=== PATIENT | male | born 1970 | race Caucasian/White ===

== ENCOUNTER → 2017-01-07 | Outpatient (CLI) | payer OTHER ==
[~2017-01-07] MED LIST: ASPIR 8181 MG PO; COLACE 100MG C100 MG PO; DAILY VALUE1 EACH PO; FOLIC ACID 1 MG1 MG PO; KEPPRA500 MG PO; LEVAQUIN750 MG PO; LIBRIUM CAP 1010 MG PO; LIBRIUM CAP 2525 MG PO; LISINOPRIL2.5 MG PO; LOPRESSOR 25 MG25 MG PO; METOPROLOL SUCC25 MG PO; METOPROLOL TART25 MG PO; MIRALAX17 GM PO; MULTIVITAMINS1 EAC1 PO; PROTONIX40 MG PO; THIAMINE HCL100 MG PO
== END ==
LOC: LAB 15:16
DX: Z02.83 Encounter for blood-alcohol and blood-drug test (principal)
CPT/HCPCS: 36415

== ENCOUNTER 2020-12-04 13:37 | Inpatient (IN) | payer MEDICARE, OTHER ==
[~2020-12-04] VITALS: Ht 177.8 cm; Wt 72.4 kg
[~2020-12-04 13:37] MED LIST changes: +BACTRIM DS TAB1 EACH PO; +HYDROCODON-ACE1 EAC2 PO; +KEFLEX CAP 500500 MG PO; +PROAIR DIGIHAL90 MCG INH; +TYLENOL PM EX-1 EACH PO; +VITAMIN D2000 UNI1 PO; +ZITHROMAX TRI-500 MG PO
[2020-12-04 15:02] LABS: HEMOGLOBIN 12.9 gm/dl (14.0-17.5); RED BLOOD COUNT 4.01 M/UL (4.20-5.50); WHITE BLOOD COUNT 12.1 K/UL (4.5-11.0)
[2020-12-04 15:53] LABS: BUN/CREATININE RATIO 16 (0-10)
[2020-12-04 21:13] LABS: BUN/CREATININE RATIO 13 (0-10)
[2020-12-05 01:25] LABS: BUN/CREATININE RATIO 18 (0-10)
[2020-12-05 04:25] LABS: BUN/CREATININE RATIO 19 (0-10)
[2020-12-05 08:45] LABS: HEMOGLOBIN 10.7 gm/dl (14.0-17.5); RED BLOOD COUNT 3.37 M/UL (4.20-5.50); WHITE BLOOD COUNT 8.3 K/UL (4.5-11.0)
[2020-12-05 09:02] LABS: BUN/CREATININE RATIO 13 (0-10)
[2020-12-05 15:04] LABS: BUN/CREATININE RATIO 16 (0-10)
[2020-12-06 05:14] LABS: HEMOGLOBIN 9.7 gm/dl (14.0-17.5); WHITE BLOOD COUNT 8.5 K/UL (4.5-11.0)
[2020-12-06 05:20] LABS: RED BLOOD COUNT 3.01 M/UL (4.20-5.50)
[2020-12-06 05:28] LABS: BUN/CREATININE RATIO 15 (0-10)
[2020-12-07 04:12] LABS: HEMOGLOBIN 9.9 gm/dl (14.0-17.5); RED BLOOD COUNT 3.08 M/UL (4.20-5.50); WHITE BLOOD COUNT 7.4 K/UL (4.5-11.0)
[2020-12-07 04:37] LABS: BUN/CREATININE RATIO 16 (0-10)
[2020-12-08 06:02] LABS: HEMOGLOBIN 9.5 gm/dl (14.0-17.5); RED BLOOD COUNT 2.98 M/UL (4.20-5.50)
[2020-12-08 06:32] LABS: BUN/CREATININE RATIO 13 (0-10)
--- NOTE | 2020-12-08 12:22 | NUR ---
WHILE PASSING MEDICATION PATIENT NOTED TO BEGIN HAVING A SEIZURE. PROVIDER AT BEDSIDE. PATIENT NOTED TO BE HAVING JERKING MOVEMENTS. PATIEN GIVEN ATIVAN 2MG IVP PER PROVIDER VERBAL ORDER. PATIENT ALSO PLACED ON 4LNC PER PROVIDER VERBAL ORDER.
[2020-12-09 06:28] LABS: RED BLOOD COUNT 3.08 M/UL (4.20-5.50); WHITE BLOOD COUNT 5.8 K/UL (4.5-11.0)
[2020-12-09 06:49] LABS: BUN/CREATININE RATIO 12 (0-10)
[2020-12-10 06:30] LABS: HEMOGLOBIN 9.7 gm/dl (14.0-17.5); RED BLOOD COUNT 3.02 M/UL (4.20-5.50); WHITE BLOOD COUNT 6.1 K/UL (4.5-11.0)
[2020-12-10 07:03] LABS: BUN/CREATININE RATIO 8 (0-10)
[2020-12-10] MEDS ORDERED: KEPPRA500 MG PO (11:16)
[2020-12-10] MEDS ORDERED: NICOTINE PATCH1 EAC2 TOP (11:16)
[2020-12-10] MEDS ORDERED: ASPIRIN EC81 MG PO (11:16)
--- NOTE | 2020-12-10 13:13 | NUR ---
REPORT CALLED TO YOMI MERINO AT [facility]
== END 2020-12-10 13:11 | disposition home or self-care (01) | DRG 897 ==
LOC: ER1 13:37 → MED SURG 4 16:49 → CDU 16:49 → MED SURG 4 16:49
PROVIDERS: Family Medicine; Physician Assistant; Physician Assistant Medical; ADMIT Internal Medicine
DX: F10.139 Alcohol abuse with withdrawal, unspecified (principal); E87.1 Hypo-osmolality and hyponatremia; N30.00 Acute cystitis without hematuria; Z20.822 Contact with and (suspected) exposure to COVID-19; D64.9 Anemia, unspecified; E87.6 Hypokalemia; R07.81 Pleurodynia; E86.1 Hypovolemia; E83.42 Hypomagnesemia; F17.210 Nicotine dependence, cigarettes, uncomplicated; J44.9 Chronic obstructive pulmonary disease, unspecified; B96.20 Unspecified Escherichia coli [E. coli] as the cause of diseases classified elsewhere; I10 Essential (primary) hypertension; Z82.49 Family history of ischemic heart disease and other diseases of the circulatory system; Z82.0 Family history of epilepsy and other diseases of the nervous system; Z83.3 Family history of diabetes mellitus
CPT/HCPCS: 36415; 36600; 70450; 71045; 80048; 80053; 80202; 80307; 81001; 82140; 82272; 82550; 82553; 82803; 83605; 83735; 83874; 83935; 84100; 84295; 84300; 84484; 85025; 85027; 85610; 87040; 87077; 87086; 87186; 93005; 95819; 96374; 97161; 99285; G0480; J0696; J0780; J1650; J1953; J2060; J2405; J3370; J7030; J7070; U0002

== ENCOUNTER 2021-05-27 12:08 | Inpatient (IN) | payer MEDICARE ==
[~2021-05-27] VITALS: Ht 177.8 cm; Wt 77.1 kg
[~2021-05-27 12:08] MED LIST changes: +ASPIRIN EC81 MG PO; +NICOTINE PATCH1 EAC2 TOP
[2021-05-27 12:44] LABS: HEMOGLOBIN 13.5 gm/dl (14.0-17.5); RED BLOOD COUNT 4.2 M/UL (4.20-5.50); WHITE BLOOD COUNT 7.8 K/UL (4.5-11.0)
[2021-05-27 13:28] LABS: BUN/CREATININE RATIO 7 (0-10)
[2021-05-27] MEDS ORDERED: B-1100 MG PO (14:21)
[2021-05-27] MEDS ORDERED: MEN'S 50 PLUS1 EACH PO (14:21)
[2021-05-27] MEDS ORDERED: OMNICEF 300 MG300 MG PO (14:21)
[2021-05-28 04:25] LABS: HEMOGLOBIN 12.7 gm/dl (14.0-17.5); RED BLOOD COUNT 4.03 M/UL (4.20-5.50)
[2021-05-28 04:50] LABS: BUN/CREATININE RATIO 8 (0-10)
[2021-05-29 07:11] LABS: HEMOGLOBIN 12.6 gm/dl (14.0-17.5); RED BLOOD COUNT 3.98 M/UL (4.20-5.50); WHITE BLOOD COUNT 6.5 K/UL (4.5-11.0)
[2021-05-29 07:52] LABS: BUN/CREATININE RATIO 9 (0-10)
--- NOTE | 2021-05-30 03:18 | NUR ---
pt is on a CIWA protocol and has scored 4 for 2 assessments. at 0100 pt called out with complaint of increased anxiety with nausea, and tremors. CIWA score was 8. Dr. Stanton notified of score and 1mg ativan was given at 0121. Recheck was done 30 after prn medication with a score of 2.
[2021-05-30 06:47] LABS: BUN/CREATININE RATIO 9 (0-10)
[2021-05-30 11:10] LABS: HBSAG SCREEN Negative (Negative); HEP A AB, IGM Negative (Negative); HEP B CORE AB, IGM Negative (Negative); HEP C VIRUS AB 0.2 (0.0-0.9)
[2021-05-31 05:36] LABS: HEMOGLOBIN 11.5 gm/dl (14.0-17.5); RED BLOOD COUNT 3.68 M/UL (4.20-5.50); WHITE BLOOD COUNT 6.6 K/UL (4.5-11.0)
[2021-05-31 06:17] LABS: BUN/CREATININE RATIO 8 (0-10)
[2021-05-31] MEDS ORDERED: DOXYCYCLINE HY100 MG PO (13:27)
[2021-05-31] MEDS ORDERED: COLCHICINE 0.60.6 MG PO (13:27)
[2021-05-31] MEDS ORDERED: VITAMIN D21250 MCG PO (13:27)
[2021-05-31] MEDS ORDERED: IPRAT-ALBUT 0.5-3 ML NEB (13:27)
[2021-05-31] MEDS ORDERED: ELIQUIS 5 MG TAB5 MG PO (13:27)
[2021-05-31] MEDS ORDERED: VITAMIN B-121000 MC3 PO (13:27)
[2021-05-31] MEDS ORDERED: NEBULIZER UNIT (13:55)
[2021-06-01 06:32] LABS: HEMOGLOBIN 11.8 gm/dl (14.0-17.5); RED BLOOD COUNT 3.78 M/UL (4.20-5.50); WHITE BLOOD COUNT 5.2 K/UL (4.5-11.0)
[2021-06-01 06:54] LABS: BUN/CREATININE RATIO 10 (0-10)
[2021-06-01 16:14] LABS: ENDOMYSIAL ANTIBODY IGA Negative (Negative); IMMUNOGLOBULIN A, QN, SERUM 592 mg/dL (90-386); T-TRANSGLUTAMINASE (TTG) IGA <2 U/mL (0-3)
[2021-06-02 04:25] LABS: BUN/CREATININE RATIO 23 (0-10)
[2021-06-03 08:20] LABS: BUN/CREATININE RATIO 18 (0-10)
[2021-06-05 06:47] LABS: HEMOGLOBIN 12.6 gm/dl (14.0-17.5); RED BLOOD COUNT 3.92 M/UL (4.20-5.50)
[2021-06-05 07:06] LABS: BUN/CREATININE RATIO 10 (0-10)
--- NOTE | 2021-06-07 23:57 | NUR ---
SEIZURE PRECAUTIONS ARE IN PLACE, PADDING ON BEDRAILS AND SUCTION IS AVAILABLE
[2021-06-09 04:14] LABS: HEMOGLOBIN 12.1 gm/dl (14.0-17.5); RED BLOOD COUNT 3.93 M/UL (4.20-5.50); WHITE BLOOD COUNT 7.7 K/UL (4.5-11.0)
[2021-06-09 04:36] LABS: BUN/CREATININE RATIO 20 (0-10)
[2021-06-09] MEDS ORDERED: ELIQUIS5 MG PO (13:54)
== END 2021-06-09 17:55 | disposition home or self-care (01) | DRG 463 ==
LOC: ER1 12:08 → CDU 16:47 → M/S 16:47
PROVIDERS: Internal Medicine; Physician Assistant; Surgery; ADMIT Internal Medicine
PROC: 0J990ZZ Drainage of Buttock Subcutaneous Tissue and Fascia, Open Approach (ICD-10-PCS; 2021-06-01)
PROC: 0JB90ZZ Excision of Buttock Subcutaneous Tissue and Fascia, Open Approach (ICD-10-PCS; principal; 2021-06-01 12:00)
DX: M48.56XA Collapsed vertebra, not elsewhere classified, lumbar region, initial encounter for fracture (principal); E43 Unspecified severe protein-calorie malnutrition; I82.401 Acute embolism and thrombosis of unspecified deep veins of right lower extremity; L02.31 Cutaneous abscess of buttock; E87.1 Hypo-osmolality and hyponatremia; Z20.822 Contact with and (suspected) exposure to COVID-19; G40.909 Epilepsy, unspecified, not intractable, without status epilepticus; Z96.611 Presence of right artificial shoulder joint; J44.9 Chronic obstructive pulmonary disease, unspecified; F17.210 Nicotine dependence, cigarettes, uncomplicated; R82.71 Bacteriuria; I10 Essential (primary) hypertension; G62.1 Alcoholic polyneuropathy; M54.16 Radiculopathy, lumbar region; K80.80 Other cholelithiasis without obstruction; K76.0 Fatty (change of) liver, not elsewhere classified; M48.54XA Collapsed vertebra, not elsewhere classified, thoracic region, initial encounter for fracture; E55.9 Vitamin D deficiency, unspecified; K74.60 Unspecified cirrhosis of liver; S93.401A Sprain of unspecified ligament of right ankle, initial encounter; Z91.14 Patient's other noncompliance with medication regimen; Z82.49 Family history of ischemic heart disease and other diseases of the circulatory system; Z83.3 Family history of diabetes mellitus
CPT/HCPCS: 36415; 70450; 71045; 72128; 72131; 73610; 73700; 76705; 80048; 80053; 80074; 80202; 81001; 82550; 82553; 82652; 82784; 83036; 83540; 83550; 83735; 83874; 84100; 84439; 84443; 84484; 85025; 85610; 85652; 86140; 87070; 87205; 93971; 94640; 94664; 94760; 96372; 96374; 96375; 96376; 97116-GP-CQ; 97161; 97530; 97530-GP-CQ; 99285; G0378; G0480; J0295; J0690; J0692; J0696; J1100; J1650; J1885; J2001; J2060; J2250; J2370; J2405; J2704; J3010; J3370; J3411; J3475; J7030; J7070; J7120; U0002

== ENCOUNTER 2021-08-06 11:56 | Inpatient (IN) | payer MEDICARE, OTHER ==
[~2021-08-06] VITALS: Ht 180.3 cm; Wt 56.7 kg
[~2021-08-06 11:56] MED LIST changes: +B-1100 MG PO; +COLCHICINE 0.60.6 MG PO; +DOXYCYCLINE HY100 MG PO; +ELIQUIS 5 MG TAB5 MG PO; +ELIQUIS5 MG PO; +IPRAT-ALBUT 0.5-3 ML NEB; +MEN'S 50 PLUS1 EACH PO; +NEBULIZER UNIT; +OMNICEF 300 MG300 MG PO; +VITAMIN B-121000 MC3 PO; +VITAMIN D21250 MCG PO
[2021-08-06 13:16] LABS: HEMOGLOBIN 16.6 gm/dl (14.0-17.5); RED BLOOD COUNT 5.64 M/UL (4.20-5.50); WHITE BLOOD COUNT 22.4 K/UL (4.5-11.0)
[2021-08-06 14:26] LABS: BUN/CREATININE RATIO 16 (0-10)
[2021-08-07 03:12] LABS: HEMOGLOBIN 12.5 gm/dl (14.0-17.5); RED BLOOD COUNT 4.34 M/UL (4.20-5.50); WHITE BLOOD COUNT 15.9 K/UL (4.5-11.0)
[2021-08-07 03:20] LABS: BUN/CREATININE RATIO 13 (0-10)
[2021-08-07 16:14] LABS: BUN/CREATININE RATIO 9 (0-10)
[2021-08-08 06:54] LABS: BUN/CREATININE RATIO 8 (0-10)
[2021-08-08 18:55] LABS: BUN/CREATININE RATIO 7 (0-10)
[2021-08-09 05:51] LABS: HEMOGLOBIN 13.7 gm/dl (14.0-17.5)
[2021-08-09 05:52] LABS: RED BLOOD COUNT 4.85 M/UL (4.20-5.50); WHITE BLOOD COUNT 10.6 K/UL (4.5-11.0)
[2021-08-09 06:22] LABS: BUN/CREATININE RATIO 6 (0-10)
--- NOTE | 2021-08-09 18:03 | NUR ---
DR THOMAS MADE AWARE PT HAS NO IV ACCESS AND HAS MISSED MULTIPLE ANTIBIOTICS WELL HIS CT SCANS WERE NOT ABLE TO BE COMPLETED DUETO NO IV ACCESS. AWAITING FURTHER ORDERS.
--- NOTE | 2021-08-10 01:08 | NUR ---
PT HAS NO IV ACCESS AT THIS TIME, WAS TOLD IN REPORT MD IS AWARE AND AWAITING ORDERS. PT STATES THAT HE MAY BE POSSIBLY GETTING A PICC LINE PLACED.
[2021-08-10 07:56] LABS: BUN/CREATININE RATIO 4 (0-10)
--- NOTE | 2021-08-10 10:32 | NUR ---
dr barrios called and aware of potassium being 2.6, new orders for protocol intiaited. she has also been reminded of no iv access for the pt
[2021-08-12 08:15] LABS: BUN/CREATININE RATIO 11 (0-10)
[2021-08-13 05:38] LABS: BUN/CREATININE RATIO 15 (0-10)
--- NOTE | 2021-08-13 10:29 | NUR ---
RN NOTED PATIENT TO BE UTILIZING ABDOMINAL MUSCLES TO BREATHE. PATIENT HEART RATE 128 AND BLOOD PRESSURE 140/96. RN LISTENED TO PATIENT'S LUNGS UTILIZING STETHOSCOPE DUE TO AUDIBLE WHEEZING. PATIENT BED LINEN CHANGED AND PATIENT SAT UPRIGHT IN HIGH LINTON'S POSITION. RN ENCOURAGED PATIENT TO COUGH AND DEEP BREATHE. RN INCREASED OXYGEN TO 7 LITERS NASAL CANNULA. PATIENT OXYGEN NOTED TO BE 90% UP FROM 88% ON 5 LITERS NASAL CANNULA. RN ATTEMPTED TO NOTIFY DR. GILLILAND ABOUT PATIENT'S CHANGE IN CONDITION WITH NO ANSWER. RN LEFT VOICEMAIL TO CALL HER BACK SOON POSSIBLE. RN CALLED DR. CUMMINGS AND NOTIFIED HIM OF PATIENT'S CHANGE IN CONDITION. NO NEW ORDERS NOTED. RN DID NOT ADMINISTER MORNING MEDICATIONS DUE TO FEAR OF ASPIRATION. CONTINUOUS TELEMETRY AND PUSE OXIMETRY IN PLACE. BED LOCKED AND LOW. CALL LIGHT WITHIN REACH.
[2021-08-13 11:16] LABS: HEMOGLOBIN 13.7 gm/dl (14.0-17.5); RED BLOOD COUNT 4.74 M/UL (4.20-5.50); WHITE BLOOD COUNT 15.6 K/UL (4.5-11.0)
--- NOTE | 2021-08-13 11:58 | NUR ---
RN ADMINISTERED PATIENT'S IV LASIX AND SAT PATIENT UP IN A HIGH LINTON'S POSITION TO ADMINISTER PO METOPROLOL. PATIENT SWALLOWED PILL BUT ONCE HE DRANK THE WATER RN OFFERED HIM, HE BECAME SILENT AND COULD NOT COUGH. RN HELD ONTO HIS LOWER BACK AND BENT HIM FORWARD AND URGED HIM TO COUGH. PATIENT FINALLY BEGAN TO COUGH AND SPEAK AGAIN. RN CALLED DR. GILLILAND AND NOTIFIED HER OF PATIENT'S EPISODE. RN RECEIVED A CALL FROM TELEMETRY STATING THE PATIENT'S OXYGEN WAS IN THE 70'S AND FALLING INTO THE 60'S. RN RANG THE STAFF ASSIST BUTTON AND INCREASED PATIENT'S OXYGEN TO 7 LITERS. STAFF CALLED AN PACU NURSE AND DR. GILLILAND ENTERED AND ORDERED PATIENT TO BE BAG MASKED. PATIENT OXYGEN INCREASED TO 80'S. MD ORDERED RN TO HAVE PULMONOLOGY ASSESS PATIENT TO DETERMINE IF PATIENT NEEDED TO BE ON PCU OR MED SURG. RN ATTEMPTED TO CALL DR. CUMMINGS BUT HE WAS IN THE ICU WITH ANOTHER PATIENT. RN ASKED ICU NURSE TO HAVE HIM COME TO ROOM 4129 SOON POSSIBLE. MD CALLED RN AND ASKED WHAT WAS GOING ON WITH THE PATIENT, RN UPDATED HIM, MD CAME TO ASSESS PATIENT. MD ORDERED RESPIRATORY THERAPIST TO PLACE PATIENT ON A BIPAP AND EVENTUALLY PATIENT OXYGEN INCREASED TO 94%. MD AND STAFF DECIDED PATIENT WOULD BE BETTER SUITED FOR THE ICU AT THIS TIME. MD ORDERED RN TO PLACE A LAWRENCE CATHETER FOR SKIN INTEGRITY PROMOTION, CATHETER PLACED. VERBAL REPORT GIVEN TO ICU NURSE THAT CAME TO PACU NURSE, PATIENT TAKEN TO ICU BY RN AND RESOURCE NURSE.
[2021-08-14 12:40] LABS: HEMOGLOBIN 13.7 gm/dl (14.0-17.5); RED BLOOD COUNT 4.76 M/UL (4.20-5.50); WHITE BLOOD COUNT 15.5 K/UL (4.5-11.0)
[2021-08-14 13:22] LABS: BUN/CREATININE RATIO 26 (0-10)
--- NOTE | 2021-08-14 19:45 | NUR ---
DR. ROBBINS DLIW AT BEDSIDE. DECISION WAS MADE BY MD TO INTUBATE PATIENT. ATTEMPTED TO NOTIFY LEAD RAMP SERVICE MAN LISTED WITH NO SUCCESS. INTUBATION WAS SUCCESSFUL WITHOUT COMPLICATION.
[2021-08-15 04:59] LABS: HEMOGLOBIN 13.2 gm/dl (14.0-17.5); RED BLOOD COUNT 4.59 M/UL (4.20-5.50)
[2021-08-15 05:03] LABS: WHITE BLOOD COUNT 28.8 K/UL (4.5-11.0)
[2021-08-15 05:37] LABS: BUN/CREATININE RATIO 22 (0-10)
[2021-08-16 06:50] LABS: BUN/CREATININE RATIO 22 (0-10)
[2021-08-16 16:36] LABS: HEMOGLOBIN 13.2 gm/dl (14.0-17.5); RED BLOOD COUNT 4.64 M/UL (4.20-5.50)
[2021-08-17 05:20] LABS: HEMOGLOBIN 13.4 gm/dl (14.0-17.5); RED BLOOD COUNT 4.71 M/UL (4.20-5.50); WHITE BLOOD COUNT 18.7 K/UL (4.5-11.0)
[2021-08-17 06:21] LABS: BUN/CREATININE RATIO 22 (0-10)
--- NOTE | 2021-08-17 08:00 | NUR ---
Bronchoscopy performed at bedside by , started at 07:40am on 08/17. ICU nurse assisted, endoscopy nurse not available. 10ml Lidocaine used during procedure and bronchial washings obtained. Bronchoscopy finished at 07:52am. Vitals stable during procedure.
[2021-08-18 05:10] LABS: BUN/CREATININE RATIO 29 (0-10)
[2021-08-18 05:48] LABS: HEMOGLOBIN 12.3 gm/dl (14.0-17.5); RED BLOOD COUNT 4.45 M/UL (4.20-5.50)
[2021-08-18 05:49] LABS: WHITE BLOOD COUNT 9.6 K/UL (4.5-11.0)
[2021-08-19 05:37] LABS: HEMOGLOBIN 15.5 gm/dl (14.0-17.5); RED BLOOD COUNT 5.46 M/UL (4.20-5.50); WHITE BLOOD COUNT 23.8 K/UL (4.5-11.0)
[2021-08-19 05:49] LABS: BUN/CREATININE RATIO 36 (0-10)
[2021-08-20 05:21] LABS: BUN/CREATININE RATIO 21 (0-10)
[2021-08-20 05:28] LABS: HEMOGLOBIN 13.2 gm/dl (14.0-17.5); RED BLOOD COUNT 4.76 M/UL (4.20-5.50)
[2021-08-21 04:41] LABS: HEMOGLOBIN 12.3 gm/dl (14.0-17.5); RED BLOOD COUNT 4.39 M/UL (4.20-5.50)
[2021-08-21 04:42] LABS: WHITE BLOOD COUNT 15.5 K/UL (4.5-11.0)
[2021-08-21 05:08] LABS: BUN/CREATININE RATIO 15 (0-10)
[2021-08-22 05:45] LABS: HEMOGLOBIN 13.2 gm/dl (14.0-17.5)
[2021-08-22 05:46] LABS: RED BLOOD COUNT 4.88 M/UL (4.20-5.50)
[2021-08-22 07:00] LABS: BUN/CREATININE RATIO 20 (0-10)
[2021-08-23 06:34] LABS: HEMOGLOBIN 13.9 gm/dl (14.0-17.5); RED BLOOD COUNT 4.99 M/UL (4.20-5.50)
[2021-08-23 09:19] LABS: BUN/CREATININE RATIO 10 (0-10)
[2021-08-24 02:37] LABS: WHITE BLOOD COUNT 12.5 K/UL (4.5-11.0)
[2021-08-24 02:40] LABS: HEMOGLOBIN 11.1 gm/dl (14.0-17.5); RED BLOOD COUNT 4.08 M/UL (4.20-5.50)
[2021-08-24 02:56] LABS: BUN/CREATININE RATIO 8 (0-10)
[2021-08-24 20:05] LABS: BUN/CREATININE RATIO 11 (0-10)
[2021-08-25 05:34] LABS: HEMOGLOBIN 12.1 gm/dl (14.0-17.5); RED BLOOD COUNT 4.46 M/UL (4.20-5.50); WHITE BLOOD COUNT 15.1 K/UL (4.5-11.0)
[2021-08-25 05:57] LABS: BUN/CREATININE RATIO 8 (0-10)
--- NOTE | 2021-08-26 00:28 | NUR ---
left facility with ems
== END 2021-08-26 00:30 | disposition short-term general hospital (02) | DRG 871 ==
LOC: ER1 11:56 → CDU 15:47 → CCU 15:47 → MED SURG 4 15:47 → CCU 17:15 → MED SURG 4 08-09 13:21 → CCU 08-13 13:34
PROVIDERS: Emergency Medicine; Internal Medicine; Internal Medicine Critical Care Medicine; Internal Medicine Infectious Disease; Nurse Practitioner Family; Physician Assistant; ADMIT Internal Medicine
PROC: 5A0945A Assistance with Respiratory Ventilation, 24-96 Consecutive Hours, High Flow/Velocity Cannula (ICD-10-PCS; 2021-08-06)
PROC: 5A09357 Assistance with Respiratory Ventilation, Less than 24 Consecutive Hours, Continuous Positive Airway Pressure (ICD-10-PCS; 2021-08-13)
PROC: 0BH17EZ Insertion of Endotracheal Airway into Trachea, Via Natural or Artificial Opening (ICD-10-PCS; 2021-08-14)
PROC: 02HV33Z Insertion of Infusion Device into Superior Vena Cava, Percutaneous Approach (ICD-10-PCS; 2021-08-14)
PROC: B548ZZA Ultrasonography of Superior Vena Cava, Guidance (ICD-10-PCS; 2021-08-14)
PROC: 3E043XZ Introduction of Vasopressor into Central Vein, Percutaneous Approach (ICD-10-PCS; principal; 2021-08-15)
PROC: B24BZZZ Ultrasonography of Heart with Aorta (ICD-10-PCS; 2021-08-15)
PROC: 5A1945Z Respiratory Ventilation, 24-96 Consecutive Hours (ICD-10-PCS; 2021-08-17)
PROC: 0B9J8ZZ Drainage of Left Lower Lung Lobe, Via Natural or Artificial Opening Endoscopic (ICD-10-PCS; 2021-08-17)
PROC: 0B9G8ZZ Drainage of Left Upper Lung Lobe, Via Natural or Artificial Opening Endoscopic (ICD-10-PCS; 2021-08-17)
PROC: 0B968ZZ Drainage of Right Lower Lobe Bronchus, Via Natural or Artificial Opening Endoscopic (ICD-10-PCS; 2021-08-17)
PROC: 0B958ZZ Drainage of Right Middle Lobe Bronchus, Via Natural or Artificial Opening Endoscopic (ICD-10-PCS; 2021-08-17)
PROC: 0B938ZZ Drainage of Right Main Bronchus, Via Natural or Artificial Opening Endoscopic (ICD-10-PCS; 2021-08-17)
PROC: 0BH17EZ Insertion of Endotracheal Airway into Trachea, Via Natural or Artificial Opening (ICD-10-PCS; 2021-08-19)
PROC: 5A1945Z Respiratory Ventilation, 24-96 Consecutive Hours (ICD-10-PCS; 2021-08-19)
PROC: 4A00X4Z Measurement of Central Nervous Electrical Activity, External Approach (ICD-10-PCS; 2021-08-26)
PROC: 4A10X4Z Monitoring of Central Nervous Electrical Activity, External Approach (ICD-10-PCS; 2021-08-26)
DX: A41.89 Other specified sepsis (principal); J18.9 Pneumonia, unspecified organism; J69.0 Pneumonitis due to inhalation of food and vomit; R65.21 Severe sepsis with septic shock; Z20.822 Contact with and (suspected) exposure to COVID-19; J96.21 Acute and chronic respiratory failure with hypoxia; G93.41 Metabolic encephalopathy; J44.1 Chronic obstructive pulmonary disease with (acute) exacerbation; F10.139 Alcohol abuse with withdrawal, unspecified; N30.00 Acute cystitis without hematuria; L89.322 Pressure ulcer of left buttock, stage 2; L89.312 Pressure ulcer of right buttock, stage 2; R73.9 Hyperglycemia, unspecified; I10 Essential (primary) hypertension; E78.5 Hyperlipidemia, unspecified; G40.909 Epilepsy, unspecified, not intractable, without status epilepticus; I48.91 Unspecified atrial fibrillation; F17.210 Nicotine dependence, cigarettes, uncomplicated; E87.6 Hypokalemia; J45.909 Unspecified asthma, uncomplicated; B96.20 Unspecified Escherichia coli [E. coli] as the cause of diseases classified elsewhere; Z98.890 Other specified postprocedural states; Z91.14 Patient's other noncompliance with medication regimen; Z82.49 Family history of ischemic heart disease and other diseases of the circulatory system; Z83.3 Family history of diabetes mellitus; Z79.01 Long term (current) use of anticoagulants; Z88.8 Allergy status to other drugs, medicaments and biological substances
CPT/HCPCS: ECHO; 31500; 36415; 36600; 70450; 71045; 71046; 74018; 76705; 80048; 80053; 80202; 80307; 81001; 82140; 82550; 82553; 82607; 82746; 82803; 83036; 83605; 83735; 83874; 83880; 84100; 84132; 84484; 85025; 85027; 85610; 85730; 87015; 87040; 87070; 87077; 87081; 87086; 87116; 87186; 87205; 87206; 92526; 92610; 93005; 93306; 94002; 94003; 94640; 94660; 94664; 94668; 94760; 95816; 96374; 96375; 96376; 97110; 97110-GP-CQ; 97161; 97162; 97530-GP-CQ; 99285; A6212; C1751; C9113; G0480; J0692; J0696; J1450; J1630; J1644; J1720; J1940; J1953; J1956; J2060; J2185; J2250; J2370; J2405; J2543; J2704; J3010; J3370; J3411; J3475; J3480; J3486; J7030; J7040; J7050; J7070; Q9967; U0002